=== PATIENT | female | born 1975 | race Caucasian/White ===

== ENCOUNTER 2021-02-22 08:42 | Outpatient (CLI) | payer OTHER, SELFPAY ==
--- NOTE | ~2021-02-22 | MM_ITS ---
EXAMINATION: MM screening [facility] BI w carlo HISTORY: Screening mammogram TECHNIQUE: Craniocaudal and mediolateral oblique 3-D tomosynthesis images were obtained and synthetic 2-D images were generated. CAD analysis was submitted and interpreted. COMPARISON: No prior mammogram is available for comparison at this institution. BREAST PARENCHYMAL COMPOSITION: There are scattered areas of fibroglandular density. FINDINGS: There is a chronic waxing and waning asymmetry in the far posterior third of the inner left breast on the craniocaudal view, consistent with a benign finding. There is no evidence of suspiciou s mass, calcification, or architectural distortion to suggest malignancy in either breast. There has been no suspicious interval change. IMPRESSION: 1. No mammographic evidence of malignancy. 2. Recommend routine screening mammography in one year. BI-RADS Category 2: Benign finding(s). Reviewed, dictated and finalized at location A.
== END 2021-02-22 08:43 | disposition home or self-care (01) ==
LOC: ANHIMG 08:44
PROVIDERS: PCP Physician Assistant; Visit Provider Physician Assistant
DX: Z12.31 Encounter for screening mammogram for malignant neoplasm of breast (principal)
CPT/HCPCS: 77063; 77067

== ENCOUNTER → 2021-11-26 02:45 | Outpatient (CLI) | payer OTHER, SELFPAY ==
[2021-11-26 15:03] LABS: SARS-CoV-2 RNA PCR Negative
== END ==
PROVIDERS: PCP Physician Assistant; Visit Provider Urology
DX: Z01.812 Encounter for preprocedural laboratory examination (principal); Z20.822 Contact with and (suspected) exposure to COVID-19
CPT/HCPCS: C9803; U0003; U0005

== ENCOUNTER 2021-11-26 08:17 | Outpatient (CLI) | payer OTHER, SELFPAY | END 2021-11-26 08:18 | disposition home or self-care (01) | LOC: ANHSURGERY 08:20 | PROVIDERS: PCP Physician Assistant; Visit Provider Urology | DX: N39.3 Stress incontinence (female) (male) (principal) | CPT/HCPCS: 87086 ==

== ENCOUNTER 2021-11-29 01:44 | Day surgery (SDC) | payer OTHER, SELFPAY ==
[2021-11-22 09:12] VITALS: BMI 30.9
--- NOTE | 2021-11-22 09:26 | PC.NURSE ---
Report to the Outpatient Waiting Room, entrance under the green pavilion located off [facility], at time 6:00 on date 11/29/21. OR Time: 7:30. - You will be asked a series of questions to screen for COVID 19 for your protection. - A mask is required within the hospital. - No visitors are allowed at this time. Preoperative COVID Testing Requirements: COVID TEST 11/26 AT 8:00 No COVID Test needed if: (proof is required; if not received patient will have Rapid Test prior to entry) - Patient has received COVID Vaccine at least 14 days prior to procedure date or - Patient has positive COVID test result within last 90 days of surgery date. COVID Test needed if above criteria is not met If not COVID vaccinated a COVID test must be conducted within 72 hours of surgery and patient is asked to isolate self from time of testing until procedure. You will go to the [facility] for your COVID testing. The [facility] site is located at the corner of [address] [facility]. You will only be called if COVID results are positive and your surgeon may reschedule your elective surgery date. Patients may have clear liquids (water, carbonated beverages, clear teas, apple juice) until 3 hours prior to surgery (4:30) with a maximum of 20 ounces. - No food from midnight until time of surgery Take the following medications with a SIP of water the morning of surgery: KLONOPIN, LEXAPRO Medications to discontinue per physician: VITAMINS/SUPPLEMENTS Date to take last dose: 11/25/21 Please no make-up, nail ugandan, hairspray, perfume, deodorant, or body powder the day of surgery. No jewelry (including any body piercings) or valuables the day of surgery, leave them at home. Please take a shower or bath the night before, or the morning of, surgery with an antibacterial soap. Wear comfortable, loose fitting clothing. - Jewelry must be removed prior to entering the operating room. Rings and piercings that are not removed may be cut off. - The hospital will not accept responsibility for valuables. - Please leave all valuables, including medications, at home the day of surgery. If you are going home after surgery, a licensed stage driver must drive you home. - NO public transportation without another adult. - We recommend that an adult stay with you for 24 hours following discharge. - We also recommend that you do not drive, make important decision, drink alcoholic beverages, or take any drugs that were not prescribed by your health care provider for at least 24 hours after your discharge time. Follow any additional instructions given to you from your surgeon. Telephone instructions given to ROBINA ESPANA and asked if any additional questions and then verbalized understanding. Patient advised to call surgeon office or pre surgery nurse liaison [phone] if any additional questions.
--- NOTE | 2021-11-23 14:41 | PM.IMHP ---
H&P: HPI History of Present Illness Date/Time: 11/23/21 14:41 46 yo with NANCY Chief Complaint: NANCY Review of Systems Review of Systems: All systems reviewed & are unremarkable except as noted in HPI and below PMFSH Family History Family History Other Carcinoma of colon Family history of heart disease in male family member before age 55 Family history of malignant neoplasm of kidney Social History Social History Smoking status: Current some day smoker Alcohol intake: current Drinks per week: 6 Substance use: never Substance use type: does not use Spiritual care concerns: No Meds Home Medications and Allergies Home Medications Medication Instructions Recorded Confirmed Type clonazepam [Klonopin] 0.25 mg PO DAILY PRN 11/22/21 11/22/21 History escitalopram oxalate [Lexapro] 20 mg PO DAILY 11/22/21 11/22/21 History Allergies Allergy/AdvReac Type Severity Reaction Status Date / Time No Known Allergies Allergy Unverified 11/22/21 09:10 Exam Narrative: + urethral mobility Assessment and Plan Assessment and plan (1) NANCY (stress urinary incontinence, female): Code(s): N39.3 - Stress incontinence (female) (male) Status: Acute Assessment and Plan: urethral sling
[2021-11-29 06:25] VITALS: BP 92/54; PULSE 62; RESP 16; TEMP 36.2; O2SAT 100
[2021-11-29] MEDS: LACTATED RINGERS 1,000 ML 30 ML IV CONT (06:30)
--- NOTE | 2021-11-29 06:44 | P.PNAN_ITS ---
Anes - Initial Pre Proc Eval Procedure: Operation Date: 11/29/21 07:30 Proposed Procedures p Urethral Sling - Sy Cota MD Date/Time: 11/29/21 06:44 Surgeon: Sy Cota MD Pre Op Diagnosis: Stress Incont Patient Data Age: 46 Gender: F Height: 1.68 m Weight: 66.75 kg Last Vital Signs Temp 36.2 C L 11/29/21 06:25 Pulse 62 11/29/21 06:25 Resp 16 11/29/21 06:25 BP 92/54 L 11/29/21 06:25 Pulse Ox 100 11/29/21 06:25 Allergies Allergy/AdvReac Type Severity Reaction Status Date / Time No Known Allergies Allergy Unverified 11/29/21 06:22 Home Medications Medication Instructions Recorded Confirmed Type clonazepam [Klonopin] 0.25 mg PO DAILY PRN 11/22/21 11/29/21 History escitalopram oxalate [Lexapro] 20 mg PO DAILY 11/22/21 11/29/21 History Patient hx anesthesia problems: none Family hx anesthesia problems: none Results Review: All pre-operative results and documents have been reviewed as part of the pre-operative evaluation. [facility] Past Medical History Medical History (Updated 11/29/21 @ 06:46 by Raymond Terry MD) Anxiety Surgical History Surgical History (Updated 11/29/21 @ 06:46 by Raymond Terry MD) Hx of tonsillectomy Family History Family History Other Carcinoma of colon Family history of heart disease in male family member before age 55 Family history of malignant neoplasm of kidney Social History Social History Smoking status: Current some day smoker Alcohol intake: current Drinks per week: 6 Substance use: never Substance use type: does not use Living arrangements: with family Spiritual care concerns: No Anes - Eval Final PreProcedure Day of Procedure 11/29/21 06:44 Patient weight: normal Heart: regular rate and rhythm Lungs: clear to auscultation Airway: Mallampati scale class II and special considerations poor opening Neurological: alert and oriented Last oral intake: >/= 8 hours ASA classification: II Emergent: no Anesthetic plan: proceed Anesthesia type and monitoring: general GIVS and standard monitoring Results Review: All pre-operative results and documents have been reviewed as part of the pre-operative evaluation. Informed Consent: The patient's anesthetic plan and its attendant risks and benefits were discussed with the patient/family/POA. Questions were solicited and answers provided to the satisfaction of the patient/family/POA.
--- NOTE | 2021-11-29 07:08 | WPDHPUPDATE1 ---
History and Physical Update Update Date/Time: 11/29/21 07:08 History and Physical has been reviewed, including an updated exam of the patient. There are NO changes in the patient's condition. Risks, benefits, and alternatives have been discussed and questions answered. Patient agrees to proceed with procedure.
[2021-11-29] MEDS: ceFAZolin 2 GM/D5W 50 ML 2 GM/50 ML BAG IVPB (07:25)
[2021-11-29] MEDS: BUPIVACAINE/EPINEPHRINE 0.25% 10 ML VIAL INFILTRATE (07:51)
[2021-11-29 07:56] VITALS: BP 101/59; PULSE 59; RESP 14; O2SAT 97
--- NOTE | 2021-11-29 08:01 | W.PM.PROC2 ---
Procedure Note - Detailed Date of Procedure 11/29/21 Pre-op Diagnosis Stress Incont Post-op Diagnosis same Procedure Performed mid urethral sling cystoscopy Surgeon Sy Cota MD Indications This is a female with confirm stress urinary incontinence. She desires surgical correction. She understands the risks of bleeding, infection, injury to the urinary tract, vaginal mesh extrusion, urinary tract mesh erosion, obstructive voiding requiring a secondary procedure, hip and leg pain, dyspareunia, inability to improve overactive bladder symptoms. She agrees to proceed. Description of Procedure She was correctly identified. Informed consent obtained. She was brought the operating room. She was given appropriate anesthesia. She was given appropriate perioperative antibiotics. A time-out performed. I marked out the site of the inner thigh incisions. I anesthetized the skin and made those incisions. I anesthetized the anterior vaginal wall over the mid urethra. I made a 1 cm incision. I dissected out laterally taking great care not to injure the refilled vaginal wall. I passed the helical trocars. First on the left. Then on the right. I did this from the thigh incision towards the vaginal incision. The sling was connected to the trocars and brought out through the thigh incision. I tensioned the sling appropriately. I cut and the plastic sheaths. I then closed the incision with 2 0 Vicryl. On cystoscopy there is no tumors or surgical artifact. There was no surgical artifact in the urethra. I cut the excess sling material. Close incisions with glue. She was awakened and transferred to the PACU in stable condition. Implants Urethral sling Drains No Packing No Pathology none sent Complications No immediate complications Condition stable Disposition PACU
[2021-11-29 08:26] VITALS: BP 113/85; PULSE 61; RESP 14; O2SAT 100
[2021-11-29 08:56] VITALS: BP 122/72; PULSE 62; RESP 14
[2021-11-29] MEDS: oxyCODONE HCL (*CRX) 5 MG TAB IR PO (09:14)
[2021-11-29 09:20] VITALS: BP 108/73; PULSE 60; RESP 14
--- NOTE | 2021-11-29 10:07 | SUR.PHASEII ---
PT VOIDED WITHOUT ISSUE.
== END 2021-11-29 09:30 | disposition home or self-care (01) ==
PROVIDERS: PCP Physician Assistant; Visit Provider Urology
PROC: (CPT 57288; principal; 2021-11-29 07:30)
DX: N39.3 Stress incontinence (female) (male) (principal); F41.9 Anxiety disorder, unspecified; F17.210 Nicotine dependence, cigarettes, uncomplicated
CPT/HCPCS: 57288; A9270; C1771; J0690; J2250; J2704; J3010; J7030; J7120

== ENCOUNTER 2022-04-12 10:58 | Outpatient (CLI) | payer OTHER, SELFPAY ==
--- NOTE | ~2022-04-12 | MM_ITS ---
EXAMINATION: MM screening [facility] HISTORY: Screening TECHNIQUE: Craniocaudal and mediolateral oblique 3-D tomosynthesis images were obtained and synthetic 2-D images were generated. CAD analysis was submitted and interpreted. COMPARISON: Comparison to multiple prior studies sequentially, with oldest reviewed study dated 04/23. BREAST PARENCHYMAL COMPOSITION: There are scattered areas of fibroglandular density. FINDINGS: There is no evidence of suspicious mass, calcification, or architectural distortion to sugg est malignancy in either breast. There has been no suspicious interval change. IMPRESSION: 1. No mammographic evidence of malignancy. 2. Recommend routine screening mammography in one year. BI-RADS Category 1: Negative Reviewed, dictated and finalized at location A.
== END 2022-04-12 10:59 | disposition home or self-care (01) ==
PROVIDERS: PCP Physician Assistant; Visit Provider Physician Assistant
DX: Z12.31 Encounter for screening mammogram for malignant neoplasm of breast (principal)
CPT/HCPCS: 77063; 77067

== ENCOUNTER 2022-12-02 01:00 | Day surgery (SDC) | payer OTHER, SELFPAY ==
[2022-11-17 12:10] VITALS: BMI 23.5
[2022-12-02 06:16] VITALS: BP 115/76; PULSE 70; RESP 16; TEMP 35.8; O2SAT 100
[2022-12-02] MEDS: LACTATED RINGERS 1,000 ML 150 ML IV CONT (06:18)
--- NOTE | 2022-12-02 07:22 | WPDANESEPPF ---
Anes - Initial Pre Proc Eval Procedure: Operation Date: 12/02/22 07:30 Proposed Procedures p Screening Colonoscopy - Eliceo Hartman MD Date/Time: 12/02/22 07:22 Surgeon: Eliceo Hartman MD Pre Op Diagnosis: neoplasm screening Patient Data Age: 47 Gender: F Height: 1.68 m Weight: 67.1 kg Last Vital Signs Temp 96.4 F L 12/02/22 06:16 Pulse 70 12/02/22 06:16 Resp 16 12/02/22 06:16 BP 115/76 12/02/22 06:16 Pulse Ox 100 12/02/22 06:16 O2 Del Method Room Air 12/02/22 06:16 Allergies Allergy/AdvReac Type Severity Reaction Status Date / Time No Known Allergies Allergy Verified 12/02/22 06:14 Home Medications Medication Instructions Recorded Confirmed Type clonazepam 0.25 mg disintegrating 0.25 mg PO DAILY PRN Anxiety 11/22/21 12/02/22 History tablet escitalopram oxalate 20 mg tablet 20 mg PO DAILY 11/22/21 12/02/22 History (Lexapro) Patient hx anesthesia problems: none Family hx anesthesia problems: none Results Review: All pre-operative results and documents have been reviewed as part of the pre-operative evaluation. [facility] Past Medical History Medical History (Updated 11/29/21 @ 06:46 by Raymond Terry MD) Anxiety Surgical History Surgical History (Updated 11/29/21 @ 06:46 by Raymond Terry MD) Hx of tonsillectomy Family History Family History Other Carcinoma of colon Family history of heart disease in male family member before age 55 Family history of malignant neoplasm of kidney Social History Social History Years smoked: 20 Smoking status: Former smoker Tobacco type: cigarettes Alcohol intake: current Drinks per week: 4 Substance use: never Substance use type: does not use Living arrangements: with family Spiritual care concerns: No Anes - Eval Final PreProcedure Day of Procedure 12/02/22 07:22 Patient weight: normal Heart: regular rate and rhythm Lungs: clear to auscultation Airway: Mallampati scale class II Neurological: alert and oriented Last oral intake: >/= 8 hours ASA classification: II Emergent: no Anesthetic plan: proceed Anesthesia type and monitoring: general GIVS and standard monitoring Results Review: All pre-operative results and documents have been reviewed as part of the pre-operative evaluation. Informed Consent: The patient's anesthetic plan and its attendant risks and benefits were discussed with the patient/family/POA. Questions were solicited and answers provided to the satisfaction of the patient/family/POA.
--- NOTE | 2022-12-02 07:38 | PM.HPGS ---
History of Present Illness History of Present Illness Consent: Risks, benefits, and alternatives have been discussed and questions answered. Patient agrees to proceed with procedure. Chief complaint: neoplasm screening Narrative: Desi Mcdowell is a 47 year old female here for first screening colonoscopy Review of Systems Constitutional: Constitutional: Denies headache(s) and Denies weakness Eyes: Eyes: Denies blurry vision ENT: Reports Normal hearing present, Denies headache(s) and Denies neck pain Cardiovascular: Cardiovascular: Denies chest pain and Denies dyspnea Respiratory: Respiratory: Denies dyspnea Gastrointestinal: Gastrointestinal: Reports no additional gastrointestinal complaints Genitourinary: Genitourinary: Denies dysuria Musculoskeletal: Musculoskeletal: Denies neck pain Integumentary/Breasts: Skin/Breast: Denies dry skin Neurologic: Reports Normal hearing present, Denies headache(s) and Denies weakness Psychiatric: Psychiatric: Denies anxiety Endocrine: Endocrine: Denies change in body appearance Hematologic/Lymphatic: Hematologic/Lymphatic: Denies easy bleeding Allergic/Immunologic: Allergic/Immunologic: Denies urticaria PMF Past Medical History Medical History (Updated 12/02/22 @ 07:39 by Eliceo Hartman MD) Anxiety Colon cancer screening Surgical History Surgical History (Updated 11/29/21 @ 06:46 by Raymond Terry MD) Hx of tonsillectomy Family History Family History Other Carcinoma of colon Family history of heart disease in male family member before age 55 Family history of malignant neoplasm of kidney Social History Social History Years smoked: 20 Smoking status: Former smoker Tobacco type: cigarettes Alcohol intake: current Drinks per week: 4 Substance use: never Substance use type: does not use Living arrangements: with family Spiritual care concerns: No Meds Home Medications and Allergies Home Medications Medication Instructions Recorded Confirmed Type clonazepam 0.25 mg disintegrating 0.25 mg PO DAILY PRN Anxiety 11/22/21 12/02/22 History tablet escitalopram oxalate 20 mg tablet 20 mg PO DAILY 11/22/21 12/02/22 History (Lexapro) Allergies Allergy/AdvReac Type Severity Reaction Status Date / Time No Known Allergies Allergy Verified 12/02/22 06:14 Vital Signs Vital Signs - 24 hr 12/02/22 06:16 Temperature 96.4 F L Pulse Rate 70 Respiratory Rate 16 Blood Pressure 115/76 Pulse Oximetry 100 Oxygen Delivery Room Air Exam Const: General: comfortable and no acute distress HENMT: Face/Nose/Sinus: Normal nares present Eyes: General: appearance normal, both eyes and all related structures Neck: Neck: no JVD Resp: Auscultation: clear to auscultation bilaterally Cardio: Rate: regular rate Rhythm: regular rhythm GI: Inspection: non-distended GI Palp: Yes Soft to palpation Skin: General skin exam: normal color Neuro: General: gait normal Speech: normal speech Extrem: General: normal to inspection Psych: Mental Status: mental status grossly normal Assessment and Plan Assessment and plan (1) Colon cancer screening: Code(s): Z12.11 - Encounter for screening for malignant neoplasm of colon Status: Acute Assessment and Plan: colonoscopy
[2022-12-02 08:03] VITALS: BP 104/82; PULSE 58; RESP 20; O2SAT 100
[2022-12-02 08:13] VITALS: BP 110/71; PULSE 59; RESP 20; O2SAT 100
[2022-12-02 08:23] VITALS: BP 119/70; PULSE 54; RESP 23; O2SAT 100
== END 2022-12-02 08:31 | disposition home or self-care (01) ==
PROVIDERS: PCP Physician Assistant; Visit Provider Internal Medicine Gastroenterology
PROC: 0DJD8ZZ Inspection of Lower Intestinal Tract, Via Natural or Artificial Opening Endoscopic (ICD-10-PCS; CPT 45378; principal; 2022-12-02 07:30)
DX: Z12.11 Encounter for screening for malignant neoplasm of colon (principal); D12.2 Benign neoplasm of ascending colon; D12.4 Benign neoplasm of descending colon; D12.5 Benign neoplasm of sigmoid colon; K63.5 Polyp of colon; F41.9 Anxiety disorder, unspecified; Z87.891 Personal history of nicotine dependence
CPT/HCPCS: 45385; 88305; J2704; J7120

== ENCOUNTER → 2023-04-01 08:17 | Outpatient (CLI) | payer OTHER, SELFPAY ==
--- NOTE | ~2023-04-01 | US_ITS ---
EXAMINATION: US soft tissue abdomen DATE: 04/01/2023 08:55 INDICATION: Palpable lump at the left lower quadrant of the abdomen TECHNIQUE: Multiple grayscale and Doppler ultrasound images of the region of concern at the abdominal wall thickening left lower quadrant were obtained. COMPARISON: None FINDINGS: There is a 5.8 x 4.9 x 1.3 cm lenticular subcutaneous mass which is isoechoic and with similar echote xture and internal septated appearing architecture as the surrounding subcutaneous fat. No abnormal i ncreased vascular flow within the mass or surrounding tissues. No other abnormal masses or fluid lorenza ections identified. IMPRESSION: 1. 5.8 x 4.9 x 1.3 cm lenticular subcutaneous mass with appearance most consistent with and statistic ally most likely to represent a lipoma. Reviewed, dictated and finalized at location B. IMPRESSION: 1. 5.8 x 4.9 x 1.3 cm lenticular subcutaneous mass with appearance most consist ent with and statistically most likely to represent a lipoma.
== END ==
PROVIDERS: PCP Physician Assistant; Visit Provider Physician Assistant
DX: R10.9 Unspecified abdominal pain (principal); R19.00 Intra-abdominal and pelvic swelling, mass and lump, unspecified site
CPT/HCPCS: 76705

== ENCOUNTER 2023-09-10 11:51 | Outpatient (CLI) | payer OTHER, SELFPAY ==
--- NOTE | ~2023-09-10 | MM_ITS ---
EXAMINATION: MM screening [facility] BI w carlo HISTORY: Screening TECHNIQUE: Craniocaudal and mediolateral oblique 3-D tomosynthesis images were obtained and synthetic 2-D images were generated. CAD analysis was submitted and interpreted. COMPARISON: 04/12/2022 BREAST PARENCHYMAL COMPOSITION: Breast composed of scattered areas of fibroglandular density FINDINGS: The right breast is stable without evidence for malignancy. There are developing asymmetrie s laterally on the left breast on CC view, posterior third. IMPRESSION: 1. Developing left breast asymmetries laterally and posteriorly on CC view. 2. Additional mammographic views and possible breast ultrasound are recommended. BI-RADS Category 0: Incomplete: Needs additional imaging evaluation. Reviewed, dictated and finalized at location A. MACHINE OPERATOR IMPRESSION: 1. Developing left breast asymmetries laterally and posteriorly on CC view. 2. Additional mammographic views and possible breast ultrasound are recommended . BI-RADS Category 0: Incomplete: Needs additional imaging evaluation.
== END 2023-09-10 11:52 | disposition home or self-care (01) ==
LOC: CHSIMG 11:53
PROVIDERS: PCP Physician Assistant; Visit Provider Physician Assistant
DX: Z12.31 Encounter for screening mammogram for malignant neoplasm of breast (principal); R92.8 Other abnormal and inconclusive findings on diagnostic imaging of breast
CPT/HCPCS: 77063; 77067

== ENCOUNTER 2023-09-28 08:58 | Outpatient (CLI) | payer OTHER, SELFPAY ==
--- NOTE | ~2023-09-28 | MMUS_ITS ---
EXAMINATION: MM diagnostic [facility] LT w carlo, US breast LT limited HISTORY: Developing left breast cysts asymmetry posterior laterally on screening CC view of 09/10/2020 TECHNIQUE: Additional 3-D tomosynthesis images of the left breast were performed and synthetic 2-D im ages were generated. CAD analysis was submitted and interpreted. High resolution upper outer and lowe r-outer quadrant left breast ultrasound was performed. COMPARISON: 09/10/2023 bilateral screening mammogram BREAST PARENCHYMAL COMPOSITION: There are scattered areas of fibroglandular density. FINDINGS: MAMMOGRAPHIC FINDINGS: No reproducible mass, architectural distortion, malignant calcification, skin thickening or retractio n is detected. ULTRASOUND: No suspicious mass, shadowing, cyst or other significant sonographic abnormality is detected in the u pper outer or lower outer quadrants of the left breast IMPRESSION: 1. No mammographic or sonographic evidence of malignancy 2. Routine annual mammographic screening is recommended BI-RADS Category 1: Negative Reviewed, dictated and finalized at location A. TYPE KEYBOARD OPERATOR IMPRESSION: 1. No mammographic or sonographic evidence of malignancy 2. Routine annual mammographic screening is recommended BI-RADS Category 1: Negative
== END 2023-09-28 08:59 | disposition home or self-care (01) ==
LOC: CHSIMG 09:00
PROVIDERS: PCP Physician Assistant; Visit Provider Physician Assistant
DX: R92.8 Other abnormal and inconclusive findings on diagnostic imaging of breast (principal)
CPT/HCPCS: 76642; 77061; 77065; G0279

== ENCOUNTER 2023-12-01 10:55 | Emergency (ER) | payer OTHER, SELFPAY ==
--- NOTE | 2023-12-01 11:04 | ED.URI ---
HPI - URI/Sore Throat General Chief Complaint: Upper Respiratory Infection Stated Complaint: Cough/Congestion Time Seen by Provider: 12/01/23 11:16 Source: patient and RN notes reviewed Mode of arrival: ambulatory Limitations: no limitations History of Present Illness HPI Narrative: 48-year-old female since concern for 1 month history of productive cough, worse in the morning, sinus pressure. Reports she has tried Aleve Sinus with temporary relief of her sinus pain. She is denying current fevers, body aches, chills, sweats. MD elicited complaint: cough and nasal congestion Related Data Home Medications Medication Instructions Recorded Confirmed clonazepam 0.25 mg disintegrating 0.25 mg PO DAILY Anxiety 11/22/21 12/01/23 tablet escitalopram oxalate 20 mg tablet 20 mg PO DAILY 11/22/21 12/01/23 (Lexapro) Allergies Allergy/AdvReac Type Severity Reaction Status Date / Time No Known Allergies Allergy Verified 12/01/23 11:06 Review of Systems Review of Systems: CONSTITUTIONAL: Denies malaise, chills, sweats, or fever. EYES: Denies visual changes, redness, or discharge. ENT: Reports rhinorrhea, congestion, sinus pain. Denies otalgia and sore throat. CARDIOVASCULAR: Denies chest pain, palpitations, or edema. RESPIRATORY: Reports productive cough. Denies dyspnea. GASTROINTESTINAL: Denies abdominal pain, nausea, vomiting, diarrhea SKIN: Denies rash or itching. MUSCULOSKELETAL: Denies myalgia. NEUROLOGIC: Denies headache. All systems reviewed & are unremarkable except as noted in HPI and below PMFSH Past Medical History Medical History (Updated 12/01/23 @ 11:20 by Dasha Calvo NP) Anxiety Colon cancer screening Surgical History Surgical History (Updated 11/29/21 @ 06:46 by Raymond Terry MD) Hx of tonsillectomy Family History Family History Other Carcinoma of colon Family history of heart disease in male family member before age 55 Family history of malignant neoplasm of kidney Social History Social History Years smoked: 20 Smoking status: Former smoker Tobacco type: cigarettes Alcohol intake: current Drinks per week: 4 Substance use: never Substance use type: does not use Living arrangements: with family Spiritual care concerns: No Comments At time of signature, agree with nursing past medical, surgical, social and family history. There is no relevant family history pertinent to the presenting complaint Exam Narrative: GENERAL: Well-appearing, well-nourished, and in no acute distress. HEAD: Normocephalic EYES: PERRLA, conjunctivae clear ENT: Nares clear, turbinates edematous and erythematous. Mucous membranes moist. TM pearly john with dull light reflex bilaterally; no tragal tenderness. Oropharynx not erythematous without lesions. Tonsils not enlarged and without exudate, no drooling, no hoarseness, no trismus, uvula midline. NECK: Supple. No lymphadenopathy CHEST: Clear to auscultation, breath sounds equal. No wheezing, rhonchi, rales, or stridor. No respiratory distress, speaks in full sentences. Cough noted HEART: Regular rate and rhythm. No murmur heard. SKIN: Warm, dry, no rash. NEURO: Alert and oriented x3. PSYCH: Normal mood and affect Course Course Emergency Course: Patient is aware of diagnosis, understands and agrees to treatment plan. Anticipatory guidance given. Patient agrees to follow-up as directed and is aware of reasons to seek care at the emergency department. Portions of this record may have been created with voice recognition software Level of Care: Express Care Visit Vital Signs Vital signs: Reviewed. MDM - URI/Sore Throat MDM Narrative Medical decision making narrative: Differential diagnosis considered: Hayes virus, strep pharyngitis, allergic rhinitis, upper respiratory tract infection, sinusitis, rhinosinusitis, n
[2023-12-01 11:05] VITALS: BP 124/86; PULSE 63; RESP 18; TEMP 36.6; O2SAT 99
[2023-12-01 11:06] VITALS: BP 124/86; PULSE 63; RESP 18; TEMP 36.6; O2SAT 99
== END 2023-12-01 11:26 | disposition home or self-care (01) ==
PROVIDERS: Emergency Provider Nurse Practitioner; PCP Physician Assistant
DX: J32.9 Chronic sinusitis, unspecified (principal); J40 Bronchitis, not specified as acute or chronic; Z87.891 Personal history of nicotine dependence; F41.9 Anxiety disorder, unspecified
CPT/HCPCS: 99213; G0463

== ENCOUNTER 2024-08-31 08:21 | Outpatient (CLI) | payer OTHER, SELFPAY ==
--- NOTE | ~2024-08-31 | CT_ITS ---
EXAMINATION:CT lung screening DATE: 08/31/2024 08:49 INDICATION: Personal history of nicotine dependence. Current smoker. TECHNIQUE: Computed tomography (CT) of the chest was performed without intravenous contrast. Automate d exposure control and iterative reconstruction technique were employed. The dose-length product (DLP ) was 59.90 mGy-cm. COMPARISON: None. FINDINGS: There is mild emphysema. There are three 3 mm nodules in left upper lobe. Calcified right l ema nodules and calcified right hilar and mediastinal lymph nodes are consistent with old granulomato us disease. No pleural effusion. The heart size is normal. No pericardial effusion. There is mild tho racic spondylosis. IMPRESSION: 1. Lung-RADS category 2: Benign appearance or behavior. Continue annual screening with noncontrast lo w-dose chest CT in 12 months. Reviewed, dictated and finalized at location B. IMPRESSION: 1. Lung-RADS category 2: Benign appearance or behavior. Continue annual screeni ng with noncontrast low-dose chest CT in 12 months.
== END 2024-08-31 08:22 | disposition home or self-care (01) ==
LOC: CHSIMG 08:24
PROVIDERS: PCP Physician Assistant; Visit Provider Physician Assistant
DX: Z12.2 Encounter for screening for malignant neoplasm of respiratory organs (principal); Z87.891 Personal history of nicotine dependence
CPT/HCPCS: 71271

== ENCOUNTER 2024-12-07 08:23 | Outpatient (CLI) | payer OTHER, SELFPAY ==
--- NOTE | ~2024-12-07 | MM_ITS ---
EXAMINATION: MM screening janeth BI w carlo HISTORY: Screening TECHNIQUE: Craniocaudal and mediolateral oblique 3-D tomosynthesis images were obtained and synthetic 2-D images were generated. CAD analysis was submitted and interpreted. COMPARISON: Comparison to multiple prior studies sequentially, with oldest reviewed study dated 08/04. BREAST PARENCHYMAL COMPOSITION: Not dense: There are scattered areas of fibroglandular density. FINDINGS: There is no evidence of suspicious mass, calcification, or architectural distortion to sugg est malignancy in either breast. There has been no suspicious interval change. IMPRESSION: 1. No mammographic evidence of malignancy. 2. Recommend routine screening mammography in one year. BI-RADS Category 1: Negative Reviewed, dictated and finalized at location [] [employer]
--- OUTSIDE RECORDS SUMMARY | 2024-12-07 08:31 | XMS_ITS | Encounter Summary ---
Author Organization [facility] Address [address] [place] [address] Care Team Providers Care Zinc Etcher Name Role Phone Unavailable Primary Care Provider Unavailabl e Encounter Details Date Type Department Care Team (Late st Contact Info) Description 11/10/2024 Lab Requisition [facility] - DermPath Lab [address] [facility], [place] [address] Zee Flores DO [address] [facility] [address] [place] [address] Social History Tobacco Use Types Packs/Day Years Used Date Smoking Tobacco: Never Assessed Sex and Gender Information Value Date Recorded Sex Assigned at Not on file Gender Identity Not on file Sexual Orientation Not on file documented as of this encounter Plan of Treatment Not on file documented as of this encounter Procedures Procedure Name Priority Date/Time Associated Diagnosis Comments DERMATOPATHOLOGY Routine 11/10/2024 9:31 AM RECORD CUTTER documented in this encounter Results * DERMATOPATHOLOGY (11/10/2024 9:31 AM RECORD CUTTER) Case Report Dermatopathology Report ? Case: [id number] ? Authorizing Provider: ??Zee Flores DO ?? Collected: ? 11/10/2024 09:31 AM ? Ordering Location: ? [facility] - ??Received: ?11/10/2024 03:31 PM ? DermPath Lab ? Pathologist: ? Keila Mora MD ? Specimens: ?? A) - Skin, left cheek ? B) - Skin, left thigh ? 5 1:25 PM [facility] DERMATOPATHOLOGY LABORATORY Final Diagnosis Specimen A. SKIN, left cheek: ACTINIC KERATOSIS (L57.0) Specimen B. SKIN, left thigh: NODULAR FASCIITIS, SUPERFICIAL PORTIONS OF (L90.5) 5 1:25 PM [facility] DERMATOPATHOLOGY LABORATORY Clinical History A: R/O SCC B: Lipoma vs NOD Fascitis vs Cyst ; R/O Sarcoma 5 1:25 PM [facility] DERMATOPATHOLOGY LABORATORY Gross Description Specimen A: Received is one formalin filled container labeled with the patient's name and designated left cheek. The specimen consists of a shave biopsy measuring 7x6x1 mm. Jar 0. Specimen B: Received is one formalin filled container labeled with the patient's name and designated left thigh. The specimen consists of a punch biopsy (2 pieces) measuring 7x7x11,33l44e7 mm. Jar 0. 1:25 PM [facility] DERMATOPATHOLOGY LABORATORY Microscopic Description Specimen A. SKIN, left cheek: There is focal parakeratosis. The lower half of the epidermis shows disorderly maturation of keratinocytes with nuclear pleomorphism. Specimen B. SKIN, left thigh: Superficial portions of a spindle stellate cell neoplasm arranged in short bundles and fascicles are identified in the subcutaneous tissue. The nuclei are ovoid and monomorphic. The stroma is variably myxoid to collagenous, with focal extravasated erythrocytes. 1:25 PM [facility] DERMATOPATHOLOGY LABORATORY Disclaimer An external and internal positive and negative controls are appropriate for the histochemical, immunohistochemical and immunofluorescence stain(s) in this case (if any), except where stated explicitly. The performance characteristics of the stain(s) cited in this report were developed and its performance characteristic determined by the Dermatopathology Laboratory at [facility], directed by Dr. Felicia Rene. These tests need not be, and therefore are not, approved by the [place] Food and Drug Administration. The tests are used for clinical purposes. Billing Codes Specimen Charges Stain Charges 15429 97057 1 1 1:25 PM [facility] DERMATOPATHOLOGY LABORATORY Embedded Images 1:25 PM [facility] DERMATOPATHOLOGY LABORATORY Pathology/Cytology TISSUE SPECIMEN FROM SKIN / Unknown 11/10/2024 9:31 AM RECORD CUTTER 11/10/2024 3:31 PM RECORD CUTTER Miscellaneous samples (specimen) TISSUE SPECIMEN FROM SKIN / Unknown 11/10/2024 9:31 AM RECORD CUTTER 11/10/2024 3:31 PM RECORD CUTTER Zee Flores DO LAB - PATHOLOGY/C YTOLOGY ORDERABLES DERMATOPATHOLOGY LABORATORY [facility] - Department of Dermatology [address] [place] [address], [facility] [phone] documented in this encounter Visit Diagnoses Not on filedocumented in this encounter
--- OUTSIDE RECORDS SUMMARY | 2024-12-07 08:31 | XMS_ITS | Encounter Summary ---
Author Organization [facility] Address [address] [place] [address] Care Team Providers Care Export Agent Name Role Phone Unavailable Primary Care Provider Unavailabl e Encounter Details Date Type Department Care Team (Late st Contact Info) Description 02/08/2024 Lab Requisition [facility] - [facility] Lab [address] [facility] [place] [address] Zee Flores DO [address] [facility] [address] [place] [address] Social History Tobacco Use Types Packs/Day Years Used Date Smoking Tobacco: Never Assessed Sex and Gender Information Value Date Recorded Sex Assigned at Not on file Gender Identity Not on file Sexual Orientation Not on file documented as of this encounter Plan of Treatment Not on file documented as of this encounter Procedures Procedure Name Priority Date/Time Associated Diagnosis Comments DERMATOPATHOLOGY Routine 02/08/2024 10:5 2 AM CDT documented in this encounter Results * DERMATOPATHOLOGY (02/08/2024 10:52 AM CDT) Case Report Dermatopathology Report ? Case: [id number] ? Authorizing Provider: ??Zee Flores DO ?? Collected: ? 02/08/2024 10:52 AM ? Ordering Location: ? [facility] - ??Received: ?02/09/2024 12:14 PM ? DermPath Lab ? Pathologist: ? Keila Mora MD ? Specimen: ?Skin, right harlan medial LE ? 4 4:30 PM CDT DERMATOPATHOLOGY LABORATORY Final Diagnosis Specimen A. SKIN, right harlan medial LE: BENIGN VERRUCOUS KERATOSIS, INFLAMED (L82.1) 4:30 PM CDT DERMATOPATHOLOGY LABORATORY Clinical History R/O SCC. 4:30 PM CDT DERMATOPATHOLOGY LABORATORY Gross Description Specimen A: Received is one formalin filled container labeled with the patient's name and designated right harlan medial LE. The specimen consists of a shave biopsy measuring 8x8x3 mm. Jar 0. 4:30 PM CDT DERMATOPATHOLOGY LABORATORY Microscopic Description Specimen A. SKIN, right harlan medial LE: Sections show hyperkeratosis, papillomatosis, hypergranulosis, and acanthosis. Inflammatory cells are present within the dermis. Mib-1 stain highlights proliferating keratinocytes confined to the basilar epidermis. These histological findings can be seen in a verruca vulgaris or a seborrheic keratosis. 4:30 PM CDT DERMATOPATHOLOGY LABORATORY Disclaimer An external and internal positive and negative controls are appropriate for the histochemical, immunohistochemical and immunofluorescence stain(s) in this case (if any), except where stated explicitly. The performance characteristics of the stain(s) cited in this report were developed and its performance characteristic determined by the Dermatopathology Laboratory at [facility], directed by Dr. Felicia Rene. These tests need not be, and therefore are not, approved by the [place] Food and Drug Administration. The tests are used for clinical purposes. Billing Codes Specimen Charges Stain Charges 66397 1 55611 1 4 4:30 PM CDT DERMATOPATHOLOGY LABORATORY Embedded Images 4 4:30 PM CDT DERMATOPATHOLOGY LABORATORY Pathology/Cytolo gy TISSUE SPECIMEN FROM SKIN / Unknown 02/08/2024 10:52 AM CDT 02/09/2024 12:14 PM CDT Zee Flores DO LAB - PATHOLOGY/C YTOLOGY ORDERABLES DERMATOPATHOLOGY LABORATORY [facility] - Department of Dermatology [address] [phone] documented in this encounter Visit Diagnoses Not on filedocumented in this encounter
--- OUTSIDE RECORDS SUMMARY | 2024-12-07 08:31 | XMS_ITS | Referral Summary ---
Author Organization [facility] Address [address] [facility] [place] [address] Care Team Providers Care Bias Machine Operator Helper Name Role Phone Unavailable Primary Care Provider Unavailabl e Source Comments [facility],non-owned Affiliates and Associated Physician Practices is amultiple site organization consisting of ambulatory clinics and hospital sitesin [place], [place], [place] and [place]. This disclosure is being madepursuant to the Care Everywhere program and may not contain all information available regarding this patient. Last updated 18.[facility] Encounters Date Type Department Care Team Description 11/10/2024 Lab Requisition [facility] - DermPath Lab [address] [facility] [place] [address] Zee Flores DO from Last 3 Months Social History Tobacco Use Types Packs/Day Years Used Date Smoking Tobacco: Never Assessed Sex and Gender Information Value Date Recorded Sex Assigned at Not on file Gender Identity Not on file Sexual Orientation Not on file Plan of Treatment Not on file Procedures Procedure Name Priority Date/Time Associated Diagnosis Comments DERMATOPATHOLOGY Routine 11/10/2024 9:31 AM GREY GOODS TESTER from Last 3 Months Results * DERMATOPATHOLOGY (11/10/2024 9:31 AM GREY GOODS TESTER) Case Report Dermatopathology Report ? Case: [id number] ? Authorizing Provider: ??Zee Flores DO ?? Collected: ? 11/10/2024 09:31 AM ? Ordering Location: ? [facility] - ??Received: ?11/10/2024 03:31 PM ? DermPath Lab ? Pathologist: ? Keila Mora MD ? Specimens: ?? A) - Skin, left cheek ? B) - Skin, left thigh ? 5 1:25 PM [facility] DERMATOPATHOLOGY LABORATORY Final Diagnosis Specimen A. SKIN, left cheek: ACTINIC KERATOSIS (L57.0) Specimen B. SKIN, left thigh: NODULAR FASCIITIS, SUPERFICIAL PORTIONS OF (L90.5) 5 1:25 PM [facility] DERMATOPATHOLOGY LABORATORY Clinical History A: R/O SCC B: Lipoma vs NOD Fascitis vs Cyst ; R/O Sarcoma 5 1:25 PM [facility] [employer] [facility] DERMATOPATHOLOGY LABORATORY Gross Description Specimen A: Received is one formalin filled container labeled with the patient's name and designated left cheek. The specimen consists of a shave biopsy measuring 7x6x1 mm. Jar 0. Specimen B: Received is one formalin filled container labeled with the patient's name and designated left thigh. The specimen consists of a punch biopsy (2 pieces) measuring 7x7x11,32l52d6 mm. Jar 0. 1:25 PM [facility] DERMATOPATHOLOGY LABORATORY Microscopic Description Specimen A. SKIN, [...] collagenous, with focal extravasated erythrocytes. 1:25 PM [facility] DERMATOPATHOLOGY LABORATORY Disclaimer An external and internal positive and negative controls are appropriate for the histochemical, immunohistochemical and immunofluorescence stain(s) in this case (if any), except where stated explicitly. The performance characteristics of the stain(s) cited in this report were developed and its performance characteristic determined by the Dermatopathology Laboratory at [facility], directed by Dr. Felicia Rene. These tests need not be, and therefore are not, approved by the [place] Food and Drug Administration. The tests are used for clinical purposes. Billing Codes Specimen Charges Stain Charges 38022 53697 1 1 1:25 PM [facility] DERMATOPATHOLOGY LABORATORY Embedded Images 1:25 PM [facility] DERMATOPATHOLOGY LABORATORY Pathology/Cytology TISSUE SPECIMEN FROM SKIN / Unknown 11/10/2024 9:31 AM GREY GOODS TESTER 11/10/2024 3:31 PM GREY GOODS TESTER Miscellaneous samples (specimen) TISSUE SPECIMEN FROM SKIN / Unknown 11/10/2024 9:31 AM GREY GOODS TESTER 11/10/2024 3:31 PM GREY GOODS TESTER Zee Flores DO LAB - PATHOLOGY/C YTOLOGY ORDERABLES DERMATOPATHOLOGY LABORATORY [facility] - Department of Dermatology [address] [place] [address], [facility] [phone] from Last 3 Months
--- OUTSIDE RECORDS SUMMARY | 2024-12-07 08:31 | XMS_ITS | Referral Summary ---
Author Organization [facility] [address] [facility] Address [address] [place] [address] Care Team Providers Care Railroad Cook Name Role Phone Shy Muñoz Primary Care Provider [phone] Allergies No known active allergies Medications triamcinolone (KENALOG) 0.1 % paste APPLY TO GUMS TWICE DAILY NEEDED 09/06/2021 Active cyclobenzaprine (FLEXERIL) 10 mg tablet Take 1 tablet (10 mg total) by mouth daily as needed for muscle spasms 10 tablet 11/24/2022 Active valACYclovir (VALTREX) 500 mg tabletIndicatio ns:Recurrent cold sores TAKE 1 TABLET BY MOUTH DAILY 90 tablet 2 02/24/2024 Active escitalopram (LEXAPRO) 10 mg tabletIndicatio ns:Anxiety Take 1 tablet (10 mg total) by mouth daily 07/04/2024 Active rosuvastatin (CRESTOR) 10 mg tablet Take 1 tablet (10 mg total) by mouth daily 90 tablet 1 08/29/2024 Active clonazePAM (KlonoPIN) 1 mg tabletIndicatio ns:Anxiety Take 0.5 tablets (0.5 mg total) by mouth daily as needed for anxiety 30 tablet 08/29/2024 Active Active Problems Problem Noted Date Diagnosed Date Family history of MTHFR deficiency 08/29/2024 Assessment & Plan (08/29/2024 9:23 PM CDT): Patient has been told she and or family member may have MTHFR gene -- she does not remember the details and or if lab work was ever done. Will go ahead and order the lab today Annual physical exam 08/29/2024 Assessment & Plan (08/29/2024 9:23 PM CDT): Encouraged healthy lifestyle, good nutrition and exercise. Encouraged Calcium and Vitamin D and weight bearing exercise for bone health. Reviewed immunizations Reviewed age appropirate screenings. Grief 07/04/2024 Assessment & Plan (07/04/2024 7:16 PM CDT): Patient is working through her grief. Lost her daughter's best friend as well as daughter underwent amputation during a traumatic injury. Patient states she is doing okay. Continue Lexapro 10 and Klonopin as needed. She is mental health providers so has assistance. She may call at any time if she needs further assistance Cigarette smoker 06/27/2024 Assessment & Plan (07/04/2024 7:25 PM CDT): Encouraged smoking cessation. Discussed 3 minutes. Reviewed options for assistance with cessation. Reviewed senior care sequela associated with smoking. Pt declines assistance at this time but may contact the office at anytime for further help as they desire. Discussed with patient Lung Cancer screening options with the patient. Advised I am unsure of the age of coverage with her insurance as it can range from 50-55 as a starting age. Encouraged LowDose CT Is a current smoker or quit in the last 15 years. Has a 30+pack years smoking history. Is currently without any signs or symptoms of lung cancer. Is willing to consider curative lung surgery if needed. [id number] Perimenopause 08/22/2023 Assessment & Plan (08/22/2023 6:35 PM CDT): Discussed perimenopause and its symptoms. She is gone about 8 or 9 months without a cycle. Advised menopause is defined as a year without a cycle. If she starts to have cycles less than 21 days apart saturating pattern our or bleeding more than 14 days she needs to follow-up otherwise skipping cycles is completely normal and consistent with perimenopause. She states her symptoms are mild but if vasomotor symptoms kick in she follow-up sooner. She is also concerned about her weight stating she is not able to lose like she was prior to her periods changing. Will check labs. Encouraged continue activity and eliminate phleboliths calories. Lipoma of torso 05/16/2023 Assessment & Plan (05/16/2023 7:39 PM CDT): Patient has a confirm =lipoma in the left lower quadrant. Similar mass in the right mid axillary line. Offered an additional ultrasound if she wanted to confirm. Have also offered referral to general surgeon for evaluation and possible excision. She prefers to just continue to monitor. If these areas grow or become painful or change in any way she is to follow up immediately. She is in agreement with the plan Abdominal pain, left lower quadrant 03/04/2023 Assessment & Plan (03/04/2023 8:59 PM CDT): Patient states she feels pain and mass area below the left ribcage. I do not really feel anything underneath the skin. Discussed could be stool moving through the bowel as she feels like it was more prominent the other day. Discussed monitoring verses imaging. She prefers to have it imaged. Will start with an ultrasound of the abdomen and pelvis. Follow-up pending those results. If she has increase in pain it intensifies she is to go to the ER. She verbalizes understanding Colon cancer screening 10/19/2022 Assessment & Plan (10/19/2022 5:50 PM AUTOMOTIVE ELECTRICIAN): Referral to GI for colonoscopy. 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 Assessment & Plan (09/22/2023 9:39 AM AUTOMOTIVE ELECTRICIAN): -oral only; diagnosed at outside facility -started on Kenalog paste prn; also given rx for Cellcept -no ocular signs of cicatrizing conjunctivitis/scarring/symblepharon formation OU today -RTC 1 year or sooner with issues Assessment & Plan (10/27/2021 11:43 PM AUTOMOTIVE ELECTRICIAN): Continue per Derm Assessment & Plan (09/25/2021 3:11 PM AUTOMOTIVE ELECTRICIAN): Mouth only; diagnosed at outside facility -started on Kenalog paste PRN; also given rx for Cellcept but patient has not started this yet pending labs from [facility] -no ocular sign; has signs of prior dryness/irritation but this more c/w with prior contact lens (CL) wear; no sp lasik -follow annually Hx of LASIK 09/25/2021 Assessment & Plan (09/22/2023 9:40 AM AUTOMOTIVE ELECTRICIAN): -s/p LASIK 2020; monovision (OD dist, OS near) (+)h/o CTL wear prior to LASIK -follow Assessment & Plan (09/25/2021 3:11 PM AUTOMOTIVE ELECTRICIAN): Bilateral lasik early 2020; monovision -doing well +h/o contact lens (CL) wear prior to lasik Breast cancer screening by mammogram 11/05/2020 Assessment & Plan (07/04/2024 7:20 PM CDT): Mammogram order provided Assessment & Plan (08/22/2023 6:36 PM CDT): Mammogram order provided Assessment & Plan (10/27/2021 11:43 PM AUTOMOTIVE ELECTRICIAN): Mammogram order provided Assessment & Plan (11/05/2020 10:10 AM AUTOMOTIVE ELECTRICIAN): Mammogram order provided Other fatigue 11/05/2020 Assessment & Plan (08/22/2023 6:36 PM CDT): Probably multifactorial. Check labs and followup to re-evaluate Assessment & Plan (10/27/2021 11:43 PM AUTOMOTIVE ELECTRICIAN): Probably multifactorial. Check labs and followup to re-evaluate Assessment & Plan (11/05/2020 10:10 AM AUTOMOTIVE ELECTRICIAN): Probably multifactorial. Check labs and followup to re-evaluate Influenza vaccine refused 11/05/2020 Assessment & Plan (10/19/2022 5:48 PM AUTOMOTIVE ELECTRICIAN): Encouraged vaccine. Reviewed risks/ benefits. Patient refuses and accepts risks. Assessment & Plan (11/05/2020 10:10 AM AUTOMOTIVE ELECTRICIAN): Encouraged vaccine. Reviewed risks/ benefits. Patient refuses and accepts risks. Mixed hyperlipidemia 11/05/2020 Assessment & Plan (08/29/2024 9:22 PM CDT): Encouraged patient to follow low fat/low chol diet like the Mediterranean diet. Increase good fats in the diet. Increase exercise. Monitor labs as needed. Patient eats well exercises well and his ideal body weight. She has been working on diet control for management of the lipids but they are just not coming down. Strong family history. Discussed treatment options including risks benefits alternatives side effects and proper use of statins Zetia as well as PCSK9s. She would like to start Crestor 10 mg. Encouraged Co Q10 1 daily [id number] to try to mitigate any discomfort. Will monitor liver enzymes in 6-8 weeks. Follow- up in 3-4 months to reassess or sooner for any other problems or concerns Assessment & Plan (08/22/2023 6:36 PM CDT): Check labs Assessment & Plan (10/19/2022 5:48 PM AUTOMOTIVE ELECTRICIAN): Encouraged patient to follow low fat/low chol diet like the Mediterranean diet. Increase good fats in the diet. Increase exercise. Monitor labs as needed. Assessment & Plan (10/27/2021 11:43 PM AUTOMOTIVE ELECTRICIAN): Encouraged patient to follow fat/low chol diet like the Mediterranean diet. Increase good fats in the diet. Increase exercise. Monitor labs as needed. Assessment & Plan (11/05/2020 10:09 AM AUTOMOTIVE ELECTRICIAN): Encouraged patient to follow fat/low chol diet like the Mediterranean diet. Increase good fats in the diet. Increase exercise. Monitor labs as needed. BMI 23.0-23.9, adult 07/11/2019 Assessment & Plan (08/29/2024 1:42 PM CDT): Weight/BMI is in healthy range. Continue healthy lifestyle to maintain. Assessment & Plan (07/04/2024 7:20 PM CDT): Weight/BMI is in healthy range. Continue healthy lifestyle to maintain. Assessment & Plan (07/11/2020 8:41 PM CDT): Weight/BMI is in healthy range. Continue healthy lifestyle to maintain. Assessment & Plan (07/11/2019 2:54 PM CDT): Weight/BMI is in healthy range. Continue healthy lifestyle to maintain. Urinary incontinence 07/11/2019 Assessment & Plan (07/11/2019 3:32 PM CDT): Pt is interested in pessary. Will refer to Dr. Mendoza for further discussion and then fitting. Reviewed she can return her for q 3month cleaning. States she may have her learn how to exchange it as he is an [employer]. 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 She has refills available. Stress incontinence 02/19/2018 Assessment & Plan (10/19/2022 5:49 PM AUTOMOTIVE ELECTRICIAN): Patient has bladder sling scheduled for November Neck pain 11/05/2016 Anxiety 08/07/2016 Assessment & Plan (08/29/2024 9:20 PM CDT): Patient is still working through grief and anxiety. Continue Lexapro 10 mg and Klonopin 0.5 mg HS p.r.n. Assessment & Plan (07/04/2024 7:20 PM CDT): Patient is working through her grief. Lost her daughter's best friend as well as daughter underwent amputation during a traumatic injury. Patient states she is doing okay. Continue Lexapro 10 and Klonopin as needed. She is mental health providers so has assistance. She may call at any time if she needs further assistance Assessment & Plan (08/22/2023 6:35 PM CDT): Known anxiety. Has been on Klonopin p.r.n.. And Lexapro 10 mg. Difficulty finding the Klonopin due to supply issues in the area. She also inquires about the possibility of an ADD this. Encouraged evaluation by psychiatrist for a true diagnosis and medication combination. Provided names of ones in the area. She is going to check in the local pharmacies to find out who has the Klonopin advised she may have to increase to 1 mg tablet but cut them in half to get her 0.5 mg. Assessment & Plan (10/19/2022 5:47 PM AUTOMOTIVE ELECTRICIAN): Patient stop the Lexapro about a month ago using a proximally 1 Klonopin since then. Feels pretty good and wants to continue without medication. Continue monitor symptoms increase she may call at any time to consider restarting Lexapro at 10. Assessment & Plan (10/27/2021 11:44 PM AUTOMOTIVE ELECTRICIAN): Stable with Lexapro Assessment & Plan (11/05/2020 10:10 AM AUTOMOTIVE ELECTRICIAN): Stable with increase of the lexapro. Using less of the klonipin. Call if sxs increase of notes increase in the klonipin use Assessment & Plan (07/11/2020 8:42 PM CDT): Increase the Lexapro to 20mg. Continue sparingly use of the clonazepam. F.u in 6 weeks to reassess. Assessment & Plan (07/11/2019 3:33 PM CDT): Stable with the Lexapro and p.r.n. Klonopin. Continue to monitor. Resolved Problems Problem Noted Date Diagnosed Date Resolved Date Positive depression screening 06/27/2024 07/04/2024 BMI 24.0-24.9, adult 04/22/202308/14/ 023 Assessment & Plan (04/22/2023 11:47 AM CDT): Weight/BMI is in healthy range. Continue healthy lifestyle to maintain. Weight/BMI is in healthy range. Continue healthy lifestyle to maintain. BMI 25.0-25.9,adult 03/04/2023 04/22/20 23 Assessment & Plan (03/04/2023 8:59 PM CDT): Weight/BMI is in healthy range. Continue healthy lifestyle to maintain. Annual physical exam 10/27/2021 024 Assessment & Plan (10/19/2022 5:49 PM AUTOMOTIVE ELECTRICIAN): Encouraged healthy lifestyle, good nutrition and exercise. Encouraged Calcium and Vitamin D and weight bearing exercise for bone health. Reviewed immunizations Reviewed age appropirate screenings. Assessment & Plan (10/27/2021 11:43 PM AUTOMOTIVE ELECTRICIAN): Encouraged healthy lifestyle, good nutrition and exercise. Encouraged Calcium and Vitamin D and weight bearing exercise for bone health. Reviewed immunizations Reviewed age appropirate screenings. Diabetes mellitus screening 10/27/2021 10/19/2022 BMI 24.0-24.9, adult 10/07/2021 023 Assessment & Plan (10/19/2022 5:49 PM AUTOMOTIVE ELECTRICIAN): Weight/BMI is in healthy range. Continue healthy lifestyle to maintain. Assessment & Plan (10/27/2021 11:43 PM AUTOMOTIVE ELECTRICIAN): Weight/BMI is in healthy range. Continue healthy lifestyle to maintain. BMI 24.0-24.9, adult 02/20/2021 021 Assessment & Plan (02/20/2021 1:35 PM CDT): Weight/BMI is in healthy range. Continue healthy lifestyle to maintain. Periorbital hematoma of right eye 02/20/2021 08/22/2023 Assessment & Plan (02/20/2021 2:08 PM CDT): Stat imaging and labs, will notify her of results as available. BMI 23.0-23.9, adult 11/05/2020 021 Assessment & Plan (11/05/2020 9:38 AM AUTOMOTIVE ELECTRICIAN): Weight/BMI is in healthy range. Continue healthy lifestyle to maintain. Lipid screening 11/05/2020 07/04/2024 Assessment & Plan (08/22/2023 6:36 PM CDT): Check labs Assessment & Plan (11/05/2020 10:10 AM AUTOMOTIVE ELECTRICIAN): Check labs Annual physical exam 07/11/2020 021 Assessment & Plan (07/11/2020 8:42 PM CDT): Encouraged healthy lifestyle, good nutrition and exercise. Encouraged Calcium and Vitamin D and weight bearing exercise for bone health. Reviewed immunizations Reviewed age appropirate screenings. Breast cancer screening 07/11/201901/2021 Assessment & Plan (07/11/2020 8:41 PM CDT): Mammogram order provided Assessment & Plan (07/11/2019 3:33 PM CDT): Mammogram order provided Immunizations Name Administration Dates Next Due Influenza, Unspecified 08/29/2024(Deferr ed: Patient Refused),08/14/2023(Deferred: Patient Refused),10/08/2022(Deferred: Patient Refused),12/03/2021(Deferred: Patient Refused) Social History Tobacco Use Types Packs/Day Years Used Date Smoking Tobacco: Some Days Cigarettes Smokeless Tobacco: Never Tobacco Cessation:Ready to Q uit: Not Asked Alcohol Use Standard Drinks/Week Comments Yes 0 (1 standard drink = 0.6 oz pur e alcohol) socailly AUDIT-C Answer Date Recorded Q1: How often do you have a drink containing alc ohol? Monthly or less 08/29/2024 Q2: How many drinks containi ng alcohol do you have on a typical day when you are drinking? 1 or 2 08/29/2024 Q3: How often do you have si x or more drinks on one occasion? 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 file Not on file Not on file Last Filed Vital Signs Vital Sign Reading Time Taken Comments Blood Pressure 124/82 08/29/2024 1:38 PM CDT Pulse 77 08/29/2024 1:38 PM CDT Temperature 36.7 ??C (98 ??F) 08/29/2024 1:38 PM CDT Respiratory Rate 16 08/29/2024 1:38 PM CDT Oxygen Saturation 95% 08/29/2024 1:38 PM CDT Inhaled Oxygen Concentration - - Weight 65.3 kg (143 lb 14.4 oz) 08/29/2024 1:38 PM CDT Height 167.6 cm (5' 6 ) 08/29/2024 1:38 PM CDT Body Mass Index 23.23 08/29/2024 1:38 PM CDT Plan of Treatment Not on file Procedures Procedure Name Priority Date/Time Associated Diagnosis Comments CT LUNG CANCER SCREENING Schedule Routine, Read Routine (OP Routine) 09/01/2024 10:47 AM CDT Cigarette smoker SCREENING MAMMOGRAM BILATERAL W JORGE Schedule Routine, Read Routine (OP Routine) 09/10/2023 Breast cancer screening by mammogram HM COLONOSCOPY Routine 12/02/2022 PAP AND HIGH RISK HPV, REFLEX TO GENOTYPING Routine 05/04/2017 from Last 3 Months or Most Recently Relevant to Health Maintenance Results * CT Lung Cancer Screening (09/01/2024 10:47 AM CDT) Anatomical Region Laterality Modality Chest N/A Computed Tomogra phy us Shy HUGHES IMG CT PROCEDURES Final Re sult * (ABNORMAL) Screening Mammogram Bilateral W Jorge (09/10/2023) Anatomical Region Laterality Modality Breast Bilateral Mammography Shy HUGHES IMG MAMMO PROCEDURES Final Result * (ABNORMAL) HM COLONOSCOPY (12/02/2022) Historical Provider HEALTH MAINTENANCE Edited Result - Final * Pap and High Risk HPV, reflex to Genotyping if Pap is Normal, HPV is Positive and patient is over 30 years old (05/04/2017) Swab 05/04/2017 Impressions Shy Muñoz PA - 05/04/2017 Negative Pap and Negative HPV Historical Provider LAB CYTOLOGY ORDERABLES F inal Result from Last 3 Months or Most Recently Relevant to Health Maintenance Insurance [place] [id number] [employer] [id number] [employer] [id number] Member Subscriber Plan / Payer (Ef fective 2021-Present) Name:Desi Mcdowell Member ID:[id number] Relation to Subscriber:Self Name:Desi Mcdowell Subscriber ID:[id number] Payer ID:[id number] Type:[employer] HMO/PPO Address: [address] [place] [phone] Care Teams Railroad Cook Relationship Specialty Start Date End Date Shy Muñoz PA [address] [place] [address] PCP - General Internal Medicine 07/08/19
--- OUTSIDE RECORDS SUMMARY | 2024-12-07 08:31 | XMS_ITS | Patient Health Summary ---
Author Organization [facility] Address [address] [place] [address] Care Team Providers Care Non Destructive Evaluation Manager Name Role Phone Unavailable Primary Care Provider Unavailabl e Note from [facility],non-owned Affiliates and Associated Physician Practices is amultiple site organization consisting of ambulatory clinics and hospital sitesin [place], [place], [place] and [place]. This disclosure is being madepursuant to the Care Everywhere program and may not contain all information available regarding this patient. Last updated 18.[facility] Social History Tobacco Use Types Packs/Day Years Used Date Smoking Tobacco: Never Assessed Sex and Gender Information Value Date Recorded Sex Assigned at Not on file Gender Identity Not on file Sexual Orientation Not on file Procedures * DERMATOPATHOLOGY(Performed 11/10/2024) * DERMATOPATHOLOGY(Performed 02/08/2024) * DERMATOPATHOLOGY(Performed 12/30/2022) * DERMATOPATHOLOGY(Performed 02/26/2022) Results * DERMATOPATHOLOGY (11/10/2024 9:31 AM OPERATIONS SUPERINTENDENT) Only the most recent of4 resultswithin the time period is included. Case Report Dermatopathology Report ? Case: [id number] ? Authorizing Provider: ??Zee Flores, DO ?? Collected: ? 11/10/2024 09:31 AM ? Ordering Location: ? [facility] - ??Received: ?11/10/2024 03:31 PM ? DermPath Lab ? Pathologist: ? Keila Mora MD ? Specimens: ?? A) - Skin, left cheek ? B) - Skin, left thigh ? 5 1:25 PM OPERATIONS SUPERINTENDENT DERMATOPATHOLOGY LABORATORY Final Diagnosis Specimen A. SKIN, left cheek: ACTINIC KERATOSIS (L57.0) Specimen B. SKIN, left thigh: NODULAR FASCIITIS, SUPERFICIAL PORTIONS OF (L90.5) 5 1:25 PM OPERATIONS SUPERINTENDENT DERMATOPATHOLOGY LABORATORY Clinical History A: R/O SCC B: Lipoma vs NOD Fascitis vs Cyst ; R/O Sarcoma 5 1:25 PM OPERATIONS SUPERINTENDENT DERMATOPATHOLOGY LABORATORY Gross Description Specimen A: Received is one formalin filled container labeled with the patient's name and designated left cheek. The specimen consists of a shave biopsy measuring 7x6x1 mm. Jar 0. Specimen B: Received is one formalin filled container labeled with the patient's name and designated left thigh. The specimen consists of a punch biopsy (2 pieces) measuring 7x7x11,31j22o5 mm. Jar 0. 1:25 PM [facility] Microscopic Description Specimen A. SKIN, [...] collagenous, with focal extravasated erythrocytes. 1:25 PM [facility] Disclaimer An external and internal positive and negative controls are appropriate for the histochemical, immunohistochemical and immunofluorescence stain(s) in this case (if any), except where stated explicitly. The performance characteristics of the stain(s) cited in this report were developed and its performance characteristic determined by the Dermatopathology Laboratory at [facility], directed by Dr. Felicia Rene. These tests need not be, and therefore are not, approved by the [place] Food and Drug Administration. The tests are used for clinical purposes. Billing Codes Specimen Charges Stain Charges 16374 24586 1 1 1:25 PM [facility] Embedded Images 1:25 PM [facility] Pathology/Cytology TISSUE SPECIMEN FROM SKIN / Unknown 11/10/2024 9:31 AM OPERATIONS SUPERINTENDENT 11/10/2024 3:31 PM OPERATIONS SUPERINTENDENT Miscellaneous samples (specimen) TISSUE SPECIMEN FROM SKIN / Unknown 11/10/2024 9:31 AM OPERATIONS SUPERINTENDENT 11/10/2024 3:31 PM OPERATIONS SUPERINTENDENT Zee Flores DO LAB - PATHOLOGY/C YTOLOGY ORDERABLES DERMATOPATHOLOGY LABORATORY [facility] - Department of Dermatology [address] [phone]
--- OUTSIDE RECORDS SUMMARY | 2024-12-07 08:31 | XMS_ITS | Clinical Summary ---
Author Organization [facility] [address] [facility] Address [address] [place] [address] Care Team Providers Care Services Rep Name Role Phone Shy Muñoz Primary Care Provider [phone] Allergies No known active allergies Medications triamcinolone [...] Reviewed options for assistance with cessation. Reviewed mcfp sequela associated with smoking. Pt declines assistance [...] 10/19/2022 Assessment & Plan (10/19/2022 5:50 PM BEATER OUT): Referral to GI for colonoscopy. 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 Assessment & Plan (09/22/2023 9:39 AM BEATER OUT): -oral only; diagnosed at outside facility -started on Kenalog paste prn; also given rx for Cellcept -no ocular signs of cicatrizing conjunctivitis/scarring/symblepharon formation OU today -RTC 1 year or sooner with issues Assessment & Plan (10/27/2021 11:43 PM BEATER OUT): Continue per Derm Assessment & Plan (09/25/2021 3:11 PM BEATER OUT): Mouth only; diagnosed at outside facility -started on Kenalog paste PRN; also given rx for Cellcept but patient has not started this yet pending labs from account engineer -no ocular sign; has signs of prior dryness/irritation but this more c/w with prior contact lens (CL) wear; no sp lasik -follow annually Hx of LASIK 09/25/2021 Assessment & Plan (09/22/2023 9:40 AM BEATER OUT): -s/p LASIK 2020; monovision (OD dist, OS near) (+)h/o CTL wear prior to LASIK -follow Assessment & Plan (09/25/2021 3:11 PM BEATER OUT): Bilateral lasik early 2020; monovision -doing well +h/o contact lens (CL) wear prior to lasik Breast cancer screening by mammogram 11/05/2020 Assessment & Plan (07/04/2024 7:20 PM CDT): Mammogram order provided Assessment & Plan (08/22/2023 6:36 PM CDT): Mammogram order provided Assessment & Plan (10/27/2021 11:43 PM BEATER OUT): Mammogram order provided Assessment & Plan (11/05/2020 10:10 AM BEATER OUT): Mammogram order provided Other fatigue 11/05/2020 Assessment & Plan (08/22/2023 6:36 PM CDT): Probably multifactorial. Check labs and followup to re-evaluate Assessment & Plan (10/27/2021 11:43 PM BEATER OUT): Probably multifactorial. Check labs and followup to re-evaluate Assessment & Plan (11/05/2020 10:10 AM BEATER OUT): Probably multifactorial. Check labs and followup to re-evaluate Influenza vaccine refused 11/05/2020 Assessment & Plan (10/19/2022 5:48 PM BEATER OUT): Encouraged vaccine. Reviewed risks/ benefits. Patient refuses and accepts risks. Assessment & Plan (11/05/2020 10:10 AM BEATER OUT): Encouraged vaccine. Reviewed risks/ benefits. Patient refuses [...] 10 mg. Encouraged Co Q10 1 daily [id number] to try to mitigate any discomfort. Will monitor liver enzymes in 6-8 weeks. Follow- up in 3-4 months to reassess or sooner for any other problems or concerns Assessment & Plan (08/22/2023 6:36 PM CDT): Check labs Assessment & Plan (10/19/2022 5:48 PM BEATER OUT): Encouraged patient to follow low fat/low chol diet like the Mediterranean diet. Increase good fats in the diet. Increase exercise. Monitor labs as needed. Assessment & Plan (10/27/2021 11:43 PM BEATER OUT): Encouraged patient to follow fat/low chol diet like the Mediterranean diet. Increase good fats in the diet. Increase exercise. Monitor labs as needed. 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 She has refills available. Stress incontinence 02/19/2018 Assessment & Plan (10/19/2022 5:49 PM BEATER OUT): Patient has bladder sling scheduled for November [...] mg. Assessment & Plan (10/19/2022 5:47 PM BEATER OUT): Patient stop the Lexapro about a month ago using a proximally 1 Klonopin since then. Feels pretty good and wants to continue without medication. Continue monitor symptoms increase she may call at any time to consider restarting Lexapro at 10. Assessment & Plan (10/27/2021 11:44 PM BEATER OUT): Stable with Lexapro Assessment & Plan (11/05/2020 10:10 AM BEATER OUT): Stable with increase of the lexapro. Using [...] 024 Assessment & Plan (10/19/2022 5:49 PM BEATER OUT): Encouraged healthy lifestyle, good nutrition and exercise. Encouraged Calcium and Vitamin D and weight bearing exercise for bone health. Reviewed immunizations Reviewed age appropirate screenings. Assessment & Plan (10/27/2021 11:43 PM BEATER OUT): Encouraged healthy lifestyle, good nutrition and exercise. Encouraged Calcium and Vitamin D and weight bearing exercise for bone health. Reviewed immunizations Reviewed age appropirate screenings. Diabetes mellitus screening 10/27/2021 10/19/2022 BMI 24.0-24.9, adult 10/07/2021 023 Assessment & Plan (10/19/2022 5:49 PM BEATER OUT): Weight/BMI is in healthy range. Continue healthy lifestyle to maintain. Assessment & Plan (10/27/2021 11:43 PM BEATER OUT): Weight/BMI is in healthy range. Continue healthy [...] 021 Assessment & Plan (11/05/2020 9:38 AM BEATER OUT): Weight/BMI is in healthy range. Continue healthy lifestyle to maintain. Lipid screening 11/05/2020 07/04/2024 Assessment & Plan (08/22/2023 6:36 PM CDT): Check labs Assessment & Plan (11/05/2020 10:10 AM BEATER OUT): Check labs Annual physical exam 07/11/2020 021 [...] Refused),08/14/2023(Deferred: Patient Refused),10/08/2022(Deferred: Patient Refused),12/03/2021(Deferred: Patient Refused) Surgical History Surgery Date Site/Laterality Comments TONSILLECTOMY EYE SURGERY 12/31/2020 - 01/30/2021 Bilateral lasik LASIK 11/02/2020 - 11/01/2021 MonoVA BLADDER SURGERY 01/14/2022 mesh put in bladder Family History Medical History Relation Name Comments Heart attack Brother Cancer Daughter Heart disease Father Stroke Mother Relation Name Status Comments Brother Alive Daughter Father Mother Alive Social History Tobacco Use Types Packs/Day Years [...] on file Legal Sex Female 8:03 PM BEATER OUT Gender Identity Not on file Sexual Orientation Not on file 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 Not on file Not on file Not on file Obstetrics History Last Filed Vital Signs Vital Sign Reading [...] 08/29/2024 1:38 PM CDT Plan of Treatment Health Maintenance Due Date Last Done Comments Hepatitis C Screening 1973 Pneumococcal vaccine <65 (1 of 2 - PCV) 1979 DTaP/Tdap/Td Vaccine (1 - Tdap) 1984 Hepatitis B Screening 1991 Cervical Cancer Screening 05/04/2018 05/04/2017 Zoster Vaccine (1 of 2) 2023 Influenza Vaccine (#1) 2024 Breast Cancer Screening-Mammogram 09/10/2024 09/10/2023, 04/12/2022, 02/22/2021, Additional history exists Depression Screening 08/29/2025 08/29/2024, 06/27/2024, 06/27/2024, Additional history exists Regular Well Visit/Exam 18-64 08/29/2025, 10/08/2022, 10/07/2021, Additional history exists Lung Cancer Screening 09/01/2025 09/01/2024 Colon Cancer Screening-Colonoscopy 12/02/20252022 Procedures Procedure Name Priority Date/Time Associated Diagnosis [...] Laterality Modality Chest N/A Computed Tomogra phy Shy HUGHES [facility] CT PROCEDURES Final Re sult * (ABNORMAL) Screening Mammogram Bilateral W Jorge (09/10/2023) Anatomical Region Laterality Modality Breast Bilateral Mammography Shy HUGHES IM MAMMO PROCEDURES Final Result * (ABNORMAL) HM [...] Most Recently Relevant to Health Maintenance [facility] [id number] [facility] [id number] [facility] [id number] Member Subscriber Plan / Payer (Ef fective 2021-Present) Name:Desi Mcdowell Member ID:[id number] Relation to Subscriber:Self Name:Desi Mcdowell Subscriber ID:[id number] Payer ID:[id number] Type:[employer] HMO/PPO Address: [facility] [address] [phone] Care Teams Services Rep Relationship Specialty Start Date End Date Shy Muñoz [place] [address] [facility] [address] [place] [address] PCP - General Internal Medicine 07/08/19
--- OUTSIDE RECORDS SUMMARY | 2024-12-07 08:31 | XMS_ITS | Clinical Summary ---
Author Organization [facility] Address [address] [place] [address] Care Team Providers Care Packager Or Packer And Weigher Name Role Phone Unavailable Primary Care Provider Unavailabl e Source Comments [facility],non-owned Affiliates and Associated Physician Practices is amultiple site organization consisting of ambulatory clinics and hospital sitesin [place], [place], [place] and [place]. This disclosure is being madepursuant to the Care Everywhere program and may not contain all information available regarding this patient. Last updated 18.[facility] Encounters Date Type Department Care Team Description 11/10/2024 Lab Requisition [facility] [address] [place] [address] Zee Flores DO from Last 3 Months Social History Tobacco Use Types Packs/Day Years Used Date Smoking Tobacco: Never Assessed Sex and Gender Information Value Date Recorded Sex Assigned at Not on file Gender Identity Not on file Sexual Orientation Not on file Plan of Treatment Health Maintenance Due Date Last Done Comments COLOGUARD (AGES 45-75) - COL ON CA SCREENING 1973 COLON MONITORING 1973 COLONOSCOPY - COLON CA SCREENING 1973 CT COLONOGRAPHY - COLON CA SCREENING 1973 Colorectal Cancer Screening 1973 FIT - COLON CA SCREENING 1973 FLEX SIG - COLON CA SCREENING 1973 LIPID TESTING 1973 MAMMOGRAM 1973 PAP SMEAR 1973 HIV SCREENING 1988 HEPATITIS C SCREENING 03/13/1991 DTAP/TDAP/TD VACCINES (1 - Tdap) 1992 HEPATITIS B VACCINE (1 of 3 - 19+ 3-dose series) 1992 PNEUMOCOCCAL VACCINE 50+ (1 of 1 - PCV) 2023 ZOSTER VACCINE (1 of 2) 2023 COVID-19 VACCINE (1 - 2023-2 5 season) 2024 INFLUENZA VACCINE (#1) 2024 DEPRESSION SCREENING 11/02/2024 HIB VACCINE Aged Out No longer eligi ble based on patient's age to complete this topic HPV VACCINE Aged Out No longer eligi ble based on patient's age to complete this topic MENINGOCOCCAL (Group B) VACCINE Aged Out No longer eligible based on patient's age to complete this topic MENINGOCOCCAL VACCINE Aged Out No jermain silvia eligible based on patient's age to complete this topic PNEUMOCOCCAL VACCINE Aged Out No long er eligible based on patient's age to complete this topic Procedures Procedure Name Priority Date/Time Associated Diagnosis Comments DERMATOPATHOLOGY Routine 11/10/2024 9:31 AM OPTIMIZATION ANALYST from Last 3 Months Results * DERMATOPATHOLOGY (11/10/2024 9:31 AM OPTIMIZATION ANALYST) Case Report Dermatopathology Report ? Case: [id number] ? Authorizing Provider: ??Zee Flores DO ?? Collected: ? 11/10/2024 09:31 AM ? Ordering Location: ? [facility] - ??Received: ?11/10/2024 03:31 PM ? DermPath Lab ? Pathologist: ? Keila Mora MD ? Specimens: ?? A) - Skin, left cheek ? B) - Skin, left thigh ? 5 1:25 PM [facility] Final Diagnosis Specimen A. SKIN, left cheek: ACTINIC KERATOSIS (L57.0) Specimen B. SKIN, left thigh: NODULAR FASCIITIS, SUPERFICIAL PORTIONS OF (L90.5) 5 1:25 PM [facility] Clinical History A: R/O SCC B: Lipoma vs NOD Fascitis vs Cyst ; R/O Sarcoma 5 1:25 PM [facility] Gross Description Specimen A: Received is one formalin filled container labeled with the patient's name and designated left cheek. The specimen consists of a shave biopsy measuring 7x6x1 mm. Jar 0. Specimen B: Received is one formalin filled container labeled with the patient's name and designated left thigh. The specimen consists of a punch biopsy (2 pieces) measuring 7x7x11,18i87d7 mm. Jar 0. 5 1:25 PM [facility] Microscopic Description Specimen A. SKIN, [...] myxoid to collagenous, with focal extravasated erythrocytes. 5 1:25 PM OPTIMIZATION ANALYST DERMATOPATHOLOGY LABORATORY Disclaimer An external and internal positive and negative controls are appropriate for the histochemical, immunohistochemical and immunofluorescence stain(s) in this case (if any), except where stated explicitly. The performance characteristics of the stain(s) cited in this report were developed and its performance characteristic determined by the Dermatopathology Laboratory at [facility], directed by Dr. Felicia Rene. These tests need not be, and therefore are not, approved by the [place] Food and Drug Administration. The tests are used for clinical purposes. Billing Codes Specimen Charges Stain Charges 04811 14405 1 1 5 1:25 PM OPTIMIZATION ANALYST DERMATOPATHOLOGY LABORATORY Embedded Images 1:25 PM OPTIMIZATION ANALYST DERMATOPATHOLOGY LABORATORY Pathology/Cytology TISSUE SPECIMEN FROM SKIN / Unknown 11/10/2024 9:31 AM OPTIMIZATION ANALYST 11/10/2024 3:31 PM OPTIMIZATION ANALYST Miscellaneous samples (specimen) TISSUE SPECIMEN FROM SKIN / Unknown 11/10/2024 9:31 AM OPTIMIZATION ANALYST 11/10/2024 3:31 PM OPTIMIZATION ANALYST Zee Flores DO LAB - PATHOLOGY/C YTOLOGY ORDERABLES DERMATOPATHOLOGY LABORATORY [facility] - Department of Dermatology [facility] Medicine [address] [place] [address], [address] [phone] from Last 3 Months
== END 2024-12-07 08:24 | disposition home or self-care (01) ==
LOC: CHSIMG 08:23
PROVIDERS: PCP Physician Assistant; Visit Provider Physician Assistant
DX: Z12.31 Encounter for screening mammogram for malignant neoplasm of breast (principal)
CPT/HCPCS: 77063; 77067